=== PATIENT | female | born 1955 | race Caucasian/White ===

== ENCOUNTER 2016-07-02 11:11 | Emergency (ER) | payer BC, SELFPAY ==
--- NOTE | 2016-07-04 19:25 | ER ---
ADMIT: 07/02/2016 RM/LOC: ER [facility] MR#: [id number] [facility] [address] [place], [place] [id number] CHRISTOMarnie ALEKSANDAR Rapp [address] [place] [address] Emergency Room Report SEX: F AGE: 61 : 1955 DATE: 07/02/2016 TIME: 1111 hours. Please refer to my T-sheet for complete H and P. Briefly, patient is 61-year- old who said she had an episode of severe back pain, kind of spasm, low, yesterday. Lasted just a few seconds. She had another episode at work today. She does do a lot a lifting work but cannot think of anything that would have caused her to hurt. She said this lasted maybe 2 to 3 minutes today, did not feel short of breath. She just felt weak and a little nauseous. Never had symptoms like this. She is a smoker, smokes a pack a day, has never had any heart problems. PHYSICAL EXAMINATION: VITAL SIGNS: Blood pressure 114/61, pulse 77, respirations 16, temp 97.1, and sat 96%. GENERAL: No acute distress. HEENT: Grossly normal. LUNGS: Clear. HEART: Regular. ABDOMEN: Soft, nontender. No rebound or guarding. BACK: She has no tenderness in her back. EXTREMITIES: No cyanosis, clubbing, or edema. SKIN: No rash. EMERGENCY DEPARTMENT COURSE: Her EKG was sinus rhythm, rate 74, no changes. Chest x-ray revealed no acute findings. Her CBC was normal. Chemistries normal including a normal troponin. She had no recurrent pain here. I had a long discussion with her, she wants to go home. I told her there is some risk although low, but she has risk factors in that she is a smoker even though the pain was [id number] back. The fact that she was a little nauseous with it and felt weak, was a little bit concerning, but it lasted just 1-2 minutes. She does not want to stay in the hospital, wants to go home. I did recommend ADMIT: 07/02/2016 RM/LOC: ER [facility] MR#: [id number] [facility] [address] [place], [place] [id number] ALEKSANDAR BROWN [address] [place] [address] Emergency Room Report SEX: F AGE: 61 : 1955 that she follow up with her primary in [facility] as she does not have one. She was willing to do that and take an aspirin today. ASSESSMENT: 1. Back pain consistent with myofascial spasm. 2. Nicotine abuse. PLAN: I wanted her take an 81 mg aspirin a day, Flexeril 10, I gave her script for 15. Stop smoking. Follow up with Dr. Cortes next week to recheck and return if worse. Robel Field MD/ sheree JOB #: [id number] CC: Robel Field MD, Attending Physician Bhanu Cortes DO, Family Physician Bhanu Cortes DO
== END 2016-07-02 17:20 | disposition home or self-care (01) ==
LOC: ER 11:11
DX: M54.6 Pain in thoracic spine (principal); F17.210 Nicotine dependence, cigarettes, uncomplicated; Z79.899 Other long term (current) drug therapy